=== PATIENT | male | born 1995 | race Caucasian/White ===

== ENCOUNTER 2017-06-20 21:54 | Emergency (ER) | payer SELFPAY ==
[~2017-06-20] VITALS: Ht 170.2 cm; Wt 73.0 kg
[2017-06-20 23:21] LABS: BASOPHILS % 0.4 % (0.0-2.0); EOSINOPHILS % 6.7 % (0.0-5.0); HEMATOCRIT. 38.3 % (42.0-52.0); HEMOGLOBIN. 13.4 g/dL (14.0-18.0); LYMPHOCYTES % 29.4 % (20.0-50.0); MEAN CORPUSCULAR HEMOGLOBIN 30.6 pg (28.0-32.0); MEAN CORPUSCULAR VOLUME 87.8 fL (80.0-94.0); MEAN PLATELET VOLUME 8.9 fl (7.4-10.4); NEUTROPHILS % 57.5 % (40.0-76.0); PLATELET 191 x1000/uL (130-400); RED BLOOD CELL COUNT 4.37 mill/uL (4.7-6.1); RED CELL DISTRIBUTION WIDTH 14.4 % (11.6-14.6)
[2017-06-20 23:26] LABS: CARBON DIOXIDE 29 mEq/L (21-32); CHLORIDE 104 mEq/L (98-107)
[2017-06-20 23:28] LABS: ETHANOL BLOOD 200 mg/dL
[2017-06-21 03:24] VITALS: BP 105/56
== END 2017-06-21 03:24 | disposition home or self-care (01) ==
LOC: EDBD 21:54 → ER 21:59
DX: F10.129 Alcohol abuse with intoxication, unspecified (principal); G93.40 Encephalopathy, unspecified
CPT/HCPCS: 36415; 70450; 80048; 82962; 85025; 99285; G0482; Z7610